=== PATIENT | female | born 1980 | race African-American/Black ===

== ENCOUNTER 2016-08-02 11:54 | Emergency (ER) | payer SELFPAY ==
[~2016-08-02] VITALS: Ht 154.9 cm; Wt 52.2 kg
[~2016-08-02 11:54] MED LIST: ACET-704 PO; NAPR550T PO; ORPH100T PO; PENI500T PO; SULF1TAB24 PO; TRAM-48 PO
[2016-08-02 12:11] VITALS: BP 138/82
[2016-08-02] MEDS ORDERED: TRIA15OI TP (13:26)
[2016-08-02] MEDS ORDERED: CETI10TA22 PO (13:26)
--- NOTE | 2016-08-02 13:26 | PHYS DOC ---
Past Medical History Past Medical History: Diabetes-Type II Past Surgical History: Additional Past Surgical Histo: X3 Alcohol Use: Occasionally Drug Use: Marijuana Adult General Chief Complaint Chief Complaint: SKIN RASH/ABSCESS HPI HPI Patient is a 35 year old female who presents with a rash that began 4 days ago. Patient states she was seen at [facility] and was given prednisone. Patient states she still has the rash. She states the rash is improving but has not cleared. She would like a note to return to work as well. She also requesting some medicine to help with the itching. Review of Systems Review of Systems Constitutional: Denies fever or chills [] Eyes: Denies change in visual acuity, redness, or eye pain [] Musculoskeletal: Denies back pain or joint pain [] Integument: rash Neurologic: Denies headache, focal weakness or sensory changes [] Endocrine: Denies polyuria or polydipsia [] Allergies Allergies Allergies Coded Allergies Type Severity Reaction Last Updated Verified hydrocodone Allergy Unknown "shakes" 12/16/15 Yes tramadol Allergy Unknown Nausea 12/16/15 Yes Physical Exam Physical Exam Constitutional: Well developed, well nourished, no acute distress, non-toxic appearance. [] HENT: Normocephalic, atraumatic, bilateral external ears normal, oropharynx moist, no oral exudates, nose normal. [] Skin: Patient has mild amount of erythematous papular rash on bilateral lower extremities and upper extremities. Back: No tenderness, no CVA tenderness. [] Extremities: No tenderness, no cyanosis, no clubbing, ROM intact, no edema. [] Neurologic: Alert and oriented X 3, normal motor function, normal sensory function, no focal deficits noted. [] Psychologic: Affect normal, judgement normal, mood normal. [] Current Patient Data Vital Signs Vital Signs Date Time Temp Pulse Resp B/P (MAP) Pulse Ox O2 Delivery O2 Flow Rate FiO2 08/02/16 12:11 98.3 100 20 97 Room Air 98.3 EKG EKG [] Radiology/Procedures Radiology/Procedures [] Course & Med Decision Making Course & Med Decision Making Pertinent Labs and Imaging studies reviewed. (See chart for details) Patient has a rash to bilateral upper and lower extremities for 4 days. She was seen at and was put on prednisone which she still taking. She states the rash has not gone away completely. She is requesting something for itching. Discharged with Zyrtec and triamcinolone cream. She wanted a note to return to work, not was given. Follow-up with the director of corporate communications provided in 2 weeks. Demond Disclaimer Demond Disclaimer This electronic medical record was generated, in whole or in part, using a voice recognition dictation system. Departure Departure Impression: Primary Impression: Rash Disposition: HOME, SELF-CARE Condition: STABLE Referrals: NO PCP (PCP) TARIQ MATA MD Follow-up in 2 weeks if symptoms continue Patient Instructions: Rash Additional Instructions: You were seen for a rash that has been going on for 4 days. Continue taking prednisone. Take Benadryl during the night and Zyrtec during the day. Use the cream provided. This rash may take a couple weeks before it clears. Follow-up with the provided director of corporate communications in 2 weeks as needed. Scripts Triamcinolone Acetonide (TRIAMCINOLONE ACETONIDE 0.1% OINT) 15 Gm Oint...g. 1 NGA TP BID for WOUND CARE, #1 TUBE MIX WITH EUCERIN DIRECTED BY PHYSICIAN Prov: NICKIE LEI APRN 08/02/16 Cetirizine Hcl (ZYRTEC) 10 Mg Tablet 1 TAB PO DAILY, #30 TAB 2 Refills Prov: NICKIE LEI APRN 08/02/16 NICKIE LEI APRN Aug 02, 2016 13:26
== END 2016-08-02 13:30 | disposition home or self-care (01) ==
LOC: ER 11:54
DX: R21 Rash and other nonspecific skin eruption (principal); E11.9 Type 2 diabetes mellitus without complications; F12.10 Cannabis abuse, uncomplicated; Z88.5 Allergy status to narcotic agent
CPT/HCPCS: 99283